=== PATIENT | female | born 1975 | race Caucasian/White ===

== ENCOUNTER 2018-10-18 11:06 | Emergency (ER) | payer MEDICAID ==
[~2018-10-18] VITALS: Ht 147.3 cm; Wt 50.8 kg
[2018-10-18 11:20] VITALS: Ht 147.3 cm; Wt 50.8 kg
[2018-10-18 14:10] VITALS: BP 119/74
== END 2018-10-18 14:10 | disposition home or self-care (01) ==
LOC: ED 11:06
DX: H81.10 Benign paroxysmal vertigo, unspecified ear (principal)
CPT/HCPCS: J8597